=== PATIENT | male | born 1980 | race Hispanic/Latino ===

== ENCOUNTER → 2018-11-18 | Outpatient (CLI) | payer OTHER ==
[~2018-11-18] MED LIST: IOPAMIDOL 370 MG/ML 200 ML INFUS..BTL INJ ONE; SODIUM CHLORIDE 0.9% 50ML 50 ML ONE
--- NOTE | 2018-11-18 17:28 | Diagnostic Imaging Report ---
Exam: CT chest Clinical history: Pleuritic chest pain Main: Helical images of the chest were obtained without contrast DOSE REDUCTION: The exams was performed according to the departmental dose-optimization program which includes automated exposure control, adjustment of the mA and/or kV according to patient size and/or use of iterative reconstruction technique. Findings: A 4 mm nodule is noted in the right middle lobe on image 61. If the patient has risk for malignancy, imaging follow-up in 12 months is recommended. Otherwise, there is no evidence of pulmonary consolidation, pleural effusion, interstitial disease, or pneumothorax. The tracheobronchial tree is clear. The cardiac size is within normal limits. The great vessels are normal in caliber and orientation. There is no evidence of mediastinal or hilar lymphadenopathy. The visualized upper abdominal solid organs are unremarkable. Impression: 1. 4 mm nodule in the right middle lobe. Otherwise, unremarkable CT of chest. Signed by: Dr. Tavo Cordova MD on 11/18/2018 5:25 PM
== END ==
LOC: CT 16:16
PROVIDERS: ATTEND Internal Medicine Cardiovascular Disease
DX: R07.81 Pleurodynia (principal)
CPT/HCPCS: 71260; Q9967